=== PATIENT | female | born 1970 | race African-American/Black ===

== ENCOUNTER 2022-07-09 12:58 | Emergency (ER) | payer OTHER, SELFPAY ==
--- NOTE | ~2022-07-09 | CT_ITS ---
EXAMINATION: CT abdomen pelvis w con DATE: 07/09/2022 17:25 INDICATION: abd pain, flank pain, UTI TECHNIQUE: Computed tomography (CT) of the abdomen and pelvis was performed with 100 mL Omnipaque-350 intravenous contrast. Automated exposure control and iterative reconstruction technique were employe d. The dose-length product was 1365.87 mGy-cm. COMPARISON: None. FINDINGS: Lower thorax: Mild cardiomegaly Liver: Normal. Biliary/Gallbladder: Nondependent calcification along the anterior gallbladder wall. No bile duct dil ation. Pancreas: No mass or duct dilation. Spleen: Normal. Adrenals:No mass. Kidneys: No mass, stone, or hydronephrosis. GI tract: No small or large bowel dilation. Normal appendix. Mesentery/Peritoneum: No ascites, mass, or free air. Retroperitoneum: No mass. Pelvis: Multiple uterine fibroids. Bladder wall thickening. Soft Tissues: Soft tissues and body wall unremarkable. Bones: No acute osseous finding. IMPRESSION: Bladder wall thickening, may be secondary to partial distention versus cystitis. Multiple uterine fib roids. Reviewed, dictated and finalized at location K. 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 Multiple uterine fibroids.
[2022-07-09 13:00] VITALS: BP 131/95; PULSE 90; RESP 18; TEMP 36.9; O2SAT 100
[2022-07-09 14:08] LABS: Alanine Aminotransferase 23 U/L (6-35); Albumin Level 4.7 g/dL (3.5-5.1); Alkaline Phosphatase 100 U/L (38-126); Anion Gap 6 mmol/L (8-16); Aspartate Amino Transferase 32 U/L (14-36); Bilirubin,Total 0.5 mg/dL (0.2-1.3); Blood Urea Nitrogen 13 mg/dL (7-17); Calcium 9.2 mg/dL (8.4-10.2); Carbon Dioxide 27 mmol/L (22-30); Chloride 105 mmol/L (98-107); Estimated CRCL calculation 83 ml/min; Estimated Glomerular Filt Rate > 60; Glucose 86 mg/dL (65-110); Lipase 57 U/L (23-300); Potassium 4.7 mmol/L (3.4-5.0); Sodium 138 mmol/L (137-145)
[2022-07-09 15:07] LABS: Add Urine Microscopic? YES; Appearance Urine Cloudy (Clear); Bilirubin Urine Negative (Negative); Blood Urine Trace-Intact (Negative); Color Urine Yellow (Yellow); Glucose Urine UA Negative (Negative); Ketones Urine Negative (Negative); Leukocyte Esterase Ur 2+ LEU/UL (Negative); Nitrate Urine Negative (Negative); Protein Urine Negative (Negative); Specific Grav Ur >= 1.030 (1.001-1.035); Urobilinogen Urine 0.2 mg/dL (<2.0)
[2022-07-09 15:12] LABS: Bacteria Urine Trace /hpf; Mucus Urine Rare /lpf; Squamous Epithelial Cell Urine Many /hpf (Few); WBC Urine 16-20 /hpf
--- NOTE | 2022-07-09 16:24 | ED.ABDPAIN ---
HPI - Abdominal Pain General Chief Complaint: Abdominal Pain Stated Complaint: abd pain Time Seen by Provider: 07/09/22 16:11 Source: patient and RN notes reviewed Mode of arrival: ambulatory Limitations: no limitations History of Present Illness HPI narrative: This is a 52 year old female that presents to the ER for right lower quadrant abdominal pain ongoing over the last couple of days. Reports the pain is aching and constant. Associated with dysuria and foul smelling urine. She has not taken anything for pain. Denies fever, vomiting, or hematuria. Related Data Allergies Allergy/AdvReac Type Severity Reaction Status Date / Time No Known Allergies Allergy Mild Verified 07/09/22 13:02 Review of Systems Review of Systems: CONSTITUTIONAL: Denies fever GASTROINTESTINAL: Reports abdominal pain. Denies nausea, vomiting, or diarrhea. GENITOURINARY: Reports dysuria. Denies hematuria. All systems reviewed & are unremarkable except as noted in HPI and below PMFSH Past Medical History Medical History (Updated 07/09/22 @ 17:41 by Alma Thomas PA-C) History of gastroesophageal reflux (GERD) History of hypertension Social History Social History (Updated 07/09/22 @ 16:32 by Alma Thomas PA-C) Substance use: never Exam Narrative: GENERAL: Well-appearing, well-nourished, and in no acute distress. HEAD: Normocephalic, atraumatic. EYES: EOMI. CHEST: Clear to auscultation. No respiratory distress. No wheezes rales or rhonchi HEART: Regular rate and rhythm. No murmur heard. Normal peripheral pulses. ABDOMEN: Soft, nondistended, normal active bowel sounds. Tender to palpation in the right lower quadrant without guarding. No CVA tenderness EXTREMITIES: Normal range of motion. No edema. SKIN: Warm, dry, no rash. NEURO: No focal deficits. Alert and oriented x3. PSYCH: Normal mood and affect Course Course Emergency Course: Patient updated on work-up. Resting comfortably. Agrees with plan of care Vital Signs Vital signs: Vital Signs Temperature 98.4 F 07/09/22 13:00 Pulse Rate 90 07/09/22 13:00 Respiratory Rate 18 07/09/22 13:00 Blood Pressure 131/95 H 07/09/22 13:00 Pulse Oximetry 100 07/09/22 13:00 Oxygen Delivery Room Air 07/09/22 13:00 Temperature 98.4 F 07/09/22 13:00 Pulse Rate 90 07/09/22 13:00 Respiratory Rate 18 07/09/22 13:00 Blood Pressure 131/95 H 07/09/22 13:00 Pulse Oximetry 100 07/09/22 13:00 Oxygen Delivery Room Air 07/09/22 13:00 MDM - Abdominal Pain MDM Narrative Medical decision making narrative: Patient presents to the emergency department for right lower quadrant abdominal pain and dysuria. She is afebrile and nontoxic-appearing. Her vitals are stable. CBC is without leukocytosis. Does show microcytic anemia with hemoglobin of 10.4 which patient reports is chronic for her. Metabolic panel without concerning findings. UA with evidence of infection. This will be sent for culture. test negative. CT scan of the abdomen and pelvis shows bladder wall thickening. Multiple uterine fibroids. No other acute findings. Patient. Will be started on oral antibiotics for UTI. She is to follow-up with primary care doctor. She was given warnings to return to the ER Differential Diagnosis Differential diagnosis: Likely abdominal pain, acute appendicitis, constipation, diverticulitis and other (kidney stone, UTI) Medical Records Attestation: I reviewed the patient's medical records. Lab Data Attestation: I reviewed the patient's lab results. 07/09/22 13:40 07/09/22 13:40 Labs: Lab Results 07/09/22 07/09/22 07/09/22 Range/Units 13:40 14:43 14:43 WBC (4.5-10.0) K/mm3 RBC (4.2-5.4) M/mm3 Hgb (12.0-15.0) g/dL Hct (37.0-47.0) % MCV (80-100) fl MCH (26-34) pg MCHC (32-36) g/dl RDW (11.5-14.5) % Plt Count (150-375) k/mm3 MPV Immature Gran % (Auto) (0-0.5) %
[2022-07-09 16:30] LABS: Pregnancy On Board Control Positive; Urine Pregnancy Test Negative
[2022-07-09 17:00] LABS: Basophils Absolute Auto 0.1 K/mm3 (0.0-0.1); Basophils Percent Auto 1.1 % (0.2-1.2); Eosinophils Absolute Auto 0.1 K/mm3 (0-0.3); Eosinophils Percent Auto 1.1 % (0-4.4); Hematocrit 32.9 % (37.0-47.0); Hemoglobin 10.4 g/dL (12.0-15.0); Immature Granulocyte Absolute 0.01 K/mm3 (0.00-0.031); Immature Granulocyte Percent A 0.1 % (0-0.5); Immature Platelet Fraction Pct 11.2 % (0.9-11.2); Lymphocytes Percent Auto 37.8 % (18.3-44.2); Mean Corpuscular HGB Conc 31.6 g/dl (32-36); Mean Corpuscular Hemoglobin 20.8 pg (26-34); Mean Corpuscular Volume 65.7 fl (80-100); Monocytes Absolute Auto 0.5 K/mm3 (0.1-0.6); Monocytes Percent Auto 6.9 % (2.6-8.5); Neutrophils Absolute Auto 3.8 K/mm3 (1.3-6.7); Platelet Count Result 262 k/mm3 (150-375); Red Blood Count 5.01 M/mm3 (4.2-5.4); Red Cell Distribution Width 17.4 % (11.5-14.5); White Blood Count 7.2 K/mm3 (4.5-10.0)
[2022-07-09 17:37] LABS: Microcytosis 1+ (NORMAL); Platelet Estimate Adequate (Adequate); Target Cells 3+ (NORMAL)
[2022-07-09 17:38] LABS: Schistocytes None Seen (NORMAL); Stomatocytes 1+ (NORMAL)
== END 2022-07-09 18:10 | disposition home or self-care (01) ==
PROVIDERS: Emergency Medicine; Emergency Provider Physician Assistant
DX: N30.00 Acute cystitis without hematuria (principal); I10 Essential (primary) hypertension; K21.9 Gastro-esophageal reflux disease without esophagitis; D25.9 Leiomyoma of uterus, unspecified
CPT/HCPCS: 36415; 74177; 80053; 81001; 81025; 83690; 85025; 85055; 87086; 87088; 96374; 99284; J0131; Q9967

== ENCOUNTER 2022-11-04 20:07 | Emergency (ER) | payer OTHER, SELFPAY ==
[2022-11-04] VITALS (10 sets, daily range): BP systolic 121–159; BP diastolic 55–87; PULSE 76–91; RESP 13–18; TEMP 36.3–36.4; O2SAT 94–100
--- NOTE | ~2022-11-04 | CT_ITS ---
Clinical Indication: Hypoxia CT Scan of the Chest with Contrast: Technique: Contiguous sections were acquired throughout the chest after intravenous administration of 75 cc of Omnipaque 350. Dose reduction technique was used on this scan by utilizing automated exposu re control and iterative reconstruction technique. The dose-length product (DLP) was 464.34 mGy-cm. Findings: There is no evidence of any significant mediastinal, hilar or axillary lymphadenopathy. There is no f illing defect in the pulmonary arterial tree to suggest pulmonary embolus. There is no evidence of ao rtic dissection or aneurysm. There is no evidence of pleural or pericardial effusion. The lungs are clear. No pulmonary nodules or infiltrates are noted. Images through the upper abdomen reveal no abnormalities. There is fatty sclerosis and some groundglass opacity involving the T11 vertebral body, suggestive of fibrous dysplasia versus less likely Paget's disease or intraosseous hemangioma. Impression: Clear lungs. 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 Reviewed, dictated and finalized at location . Impression: Clear lungs. 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
--- NOTE | ~2022-11-04 | XR_ITS ---
EXAMINATION: XR chest 1V portable Exam Date/Time: 11/04/2022 22:00 CDT HISTORY: cough Comparison: None available. RESULT: Lines, tubes, and devices: None. Lungs and pleura: Slightly low volumes with crowding. Bibasilar atelectasis. Cardiomediastinal silhouette: Unremarkable. Other: No acute osseous or upper abdominal finding. IMPRESSION: No acute cardiopulmonary process. Reviewed, dictated and finalized at location K.
[2022-11-04] MEDS: SODIUM CHLORIDE 0.9% IV 1,000 ML 999 ML IV CONT (22:18)
[2022-11-04 22:31] LABS: Hematocrit 36.7 % (37.0-47.0); Hemoglobin 11.4 g/dL (12.0-15.0); Immature Platelet Fraction Pct 16.3 % (0.9-11.2); Mean Corpuscular HGB Conc 31.1 g/dl (32-36); Mean Corpuscular Hemoglobin 20.5 pg (26-34); Mean Corpuscular Volume 66.1 fl (80-100); Platelet Count Result 213 k/mm3 (150-375); Red Blood Count 5.55 M/mm3 (4.2-5.4); White Blood Count 8.5 K/mm3 (4.5-10.0)
[2022-11-04 22:39] LABS: Alanine Aminotransferase 24 U/L (6-35); Albumin Level 4.6 g/dL (3.5-5.1); Alkaline Phosphatase 108 U/L (38-126); Anion Gap 6 mmol/L (8-16); Aspartate Amino Transferase 29 U/L (14-36); Bilirubin,Total 0.8 mg/dL (0.2-1.3); Blood Urea Nitrogen 13 mg/dL (7-17); Calcium 9.3 mg/dL (8.4-10.2); Carbon Dioxide 28 mmol/L (22-30); Chloride 104 mmol/L (98-107); Estimated CRCL calculation 85 ml/min; Estimated Glomerular Filt Rate > 60; Glucose 97 mg/dL (65-110); Sodium 138 mmol/L (137-145)
--- NOTE | 2022-11-04 22:40 | ECG_ITS ---
Measurements Intervals [place] Rate: 82 P: 46 FL: 168 QRS: 47 QRSD: 81 T: 24 QT: 393 QTc: 459 Interpretive Statements SINUS RHYTHM DELAYED PRECORDIAL R/S TRANSITION BORDERLINE T WAVE ABNORMALITY- ANTERIOR LEADS BORDERLINE ECG NO PREVIOUS ECG AVAILABLE FOR COMPARISON Electronically Signed On 11-05-2022 6:17:25 CDT by Ephraim Aldrich D.O.
[2022-11-04 23:01] LABS: Band Neutrophils Percent 1 % (0-6); Eosinophils Absolute Manual 0.08 K/mm3 (0.02-0.5); Eosinophils Percent Manual 1 % (0-4); Lymphocytes Absolute Manual 2.63 K/mm3 (1.1-4.5); Metamyelocytes Percent 1 %; Monocytes Absolute Manual 0.59 K/mm3 (0.1-0.90); Monocytes Percent Manual 7 % (3-9); Neutrophils Percent Manual 59 % (46-73); Platelet Estimate Adequate (Adequate); Total Cells Counted 100
[2022-11-04 23:02] LABS: Anisocytosis 2+ (NORMAL); Large Platelets Present; Macrocytosis 1+ (NORMAL); Microcytosis 2+ (NORMAL); Schistocytes None Seen (NORMAL)
[2022-11-04 23:03] LABS: Atypical Lymphocytes Present; Target Cells 1+ (NORMAL)
[2022-11-04 23:04] LABS: Hypochromasia 1+ (NORMAL)
[2022-11-04 23:09] LABS: Troponin I < 0.012 ng/mL (0.000-0.034)
[2022-11-04 23:32] LABS: D Dimer 0.42 ug/mL (<0.48)
--- NOTE | 2022-11-04 23:43 | ED.DIZZY ---
HPI - Dizziness General Chief Complaint: Dizziness <MIMI Funes Last Filed: 11/05/22 03:28> Stated Complaint: dizzy, tired <MIMI Funes Last Filed: 11/05/22 03:28> Time Seen by Provider: 11/04/22 21:22 <MIMI Funes Last Filed: 11/05/22 03:28> Source: patient <MIMI Funes Last Filed: 11/05/22 03:28> Mode of arrival: ambulatory <MIMI Funes Last Filed: 11/05/22 03:28> Limitations: no limitations <MIMI Funes Last Filed: 11/05/22 03:28> History of Present Illness HPI Narrative: This is a 52-year-old female with PMH of HTN who presents the ED via EMS for multiple complaints. States her chief complaint is feeling lightheaded today. Specifically notices that she is lightheaded when she stands up from a seated position. Denies LOC. States I do not drink enough water. Patient also reports malaise and cough. Also endorses chest pain and shortness of breath have been going on for several months. States that none of the symptoms are worse today. Denies abdominal pain, nausea, vomiting, vision changes, speech changes, numbness, weakness. Denies palpitations. <MIMI Funes Last Filed: 11/05/22 03:28> Related Data Allergies/Adverse Reactions: Allergies Allergy/AdvReac Type Severity Reaction Status Date / Time No Known Allergies Allergy Mild Verified 07/09/22 13:02 <MIMI Funes Last Filed: 11/05/22 03:28> Review of Systems Review of Systems: CONSTITUTIONAL: endorses malaise. Denies fever, chills, or sweats. EYES: Denies visual changes, redness, or discharge. ENT: Denies rhinorrhea, congestion, sore throat, or otalgia. CARDIOVASCULAR: See HPI RESPIRATORY: See HPI GASTROINTESTINAL: Denies abdominal pain, nausea, vomiting, or diarrhea. GENITOURINARY: Denies dysuria or hematuria. SKIN: Denies rash or itching. MUSCULOSKELETAL: Denies back pain, joint pain, or myalgia. NEUROLOGIC: See HPI PSYCHIATRIC: Denies anxiety or depression. <Jordin Spencer PA-C - Last Filed: 11/05/22 03:28> [facility] Past Medical History Medical History: Medical History (Updated 11/06/22 @ 00:00 by Sumi Flores) History of gastroesophageal reflux (GERD) History of hypertension <Jordin Spencer PA-C - Last Filed: 11/05/22 03:28> Social History Social History: Social History (Updated 07/09/22 @ 16:32 by Alma Thomas PA-C) Substance use: never <Jordin Spencer PA-C - Last Filed: 11/05/22 03:28> Exam Narrative: GENERAL: Well-appearing, well-nourished, and in no acute distress. HEAD: Normocephalic, atraumatic. EYES: PERRLA and EOMI. ENT: Nares clear, no rhinorrhea or epistaxis. Mucous membranes somewhat dry. Oropharynx without tonsillar hypertrophy exudate or other lesions. NECK: Supple. No adenopathy or masses. CHEST: No respiratory distress. Clear to auscultation. No wheezes rales or rhonchi HEART: Regular rate and rhythm. No murmur heard. Normal peripheral pulses. ABDOMEN: Soft, nontender, nondistended, normal active bowel sounds. EXTREMITIES: Normal range of motion. No edema. SKIN: Warm, dry, no rash. NEURO: Alert and oriented x3. No focal deficits. PSYCH: Normal mood and affect. 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 I performed all aspects of the MDM as documented w/ the following additions: 52-year-old presenting with lightheadedness. Initial workup was negative in the patient improved with some fluids. However on an ambulatory pulse ox test she did have a minor desaturation although she was otherwise asymptomatic. Further workup was ordered and she was given another L of fluids. CT PE was negative and there is no cause for her hypoxia. She does have an appointment with a souvenir and novelty maker as she has been having lung issues for some time. On discharge patient was resting comf
[2022-11-05 01:18] VITALS: BP 147/61; PULSE 71; RESP 17; O2SAT 99
--- NOTE | 2022-11-05 01:19 | PC.NURSE ---
Patient did road test around nurses station. SPO2 dropped to 89% for one second otherwise SPO2 was 92-94. Notified Jordin BAIRD.
[2022-11-05] MEDS: SODIUM CHLORIDE 0.9% IV 1,000 ML 999 ML IV CONT (02:04)
[2022-11-05 03:36] VITALS: BP 141/79; PULSE 77; RESP 18; TEMP 37.2; O2SAT 99
== END 2022-11-05 03:36 | disposition home or self-care (01) ==
PROVIDERS: Emergency Provider Physician Assistant; PCP Physician Assistant
DX: I95.1 Orthostatic hypotension (principal); E86.0 Dehydration; I10 Essential (primary) hypertension; K21.9 Gastro-esophageal reflux disease without esophagitis; R94.31 Abnormal electrocardiogram [ECG] [EKG]; R93.7 Abnormal findings on diagnostic imaging of other parts of musculoskeletal system
CPT/HCPCS: 36415; 71045; 71260; 80053; 84484; 85025; 85055; 85380; 93005; 96360; 96361; 99284; J7030; Q9967

== ENCOUNTER 2023-01-04 16:00 | Emergency (ER) | payer OTHER, SELFPAY ==
--- NOTE | ~2023-01-04 | CT_ITS ---
EXAMINATION: CT abdomen pelvis w con DATE: 01/04/2023 19:05 INDICATION: Abdominal and left flank pain. Dysuria. TECHNIQUE: Computed tomography (CT) of the abdomen and pelvis was performed with 100 mL Omnipaque-350 intravenous contrast. Automated exposure control and iterative reconstruction technique were employe d. The dose-length product was 1432.24 mGy-cm. COMPARISON: 07/09/2022 FINDINGS: Minimal bibasilar atelectasis. Heart size is normal. No pericardial or pleural effusion. Unchanged fo sherman mural calcification along the nondependent wall of the gallbladder. There is a second more subtle density along the posterior dependent gallbladder wall which could represent an additional mural sehrman cification or small gallstone. No intra or extra hepatic biliary ductal dilation. Multiple splenic ca lcific lesions consistent with old granulomatous disease. Pancreas, bilateral adrenal glands and kidn eys are normal. No evident urolithiasis. Multiple large uterine fibroids, the largest measuring up to 5.6 cm bowels including the appendix are normal. There is diffuse wall thickening of the decompresse d bladder which could be due to decompressed state and/or cystitis which could be either acute or chr onic. No free intraperitoneal gas or fluid. No pathologically enlarged abdominal or pelvic lymphadeno jovani. Again seen is a sclerotic coarsened internal trabecula pattern within the T11 vertebral body a nd posterior elements both which appear mildly enlarged and suggests either Paget's disease or fibrou s dysplasia. IMPRESSION: 1. Diffuse bladder wall thickening which. More prominent than expected even accounting for decompress ed state and is suspicious for cystitis. Correlate with urinalysis. No urolithiasis. 2. Small focus of mural calcific location at the gallbladder with possible cholelithiasis. 3. Fibroid uterus. Reviewed, dictated and finalized at location A. IMPRESSION: 1. Diffuse bladder wall thickening which. More prominent than expected even acc ounting for decompressed state and is suspicious for cystitis. Correlate with u rinalysis. No urolithiasis. 2. Small focus of mural calcific location at the gallbladder with possible chol elithiasis. 3. Fibroid uterus.
[2023-01-04 16:27] VITALS: BP 126/69; PULSE 65; RESP 17; TEMP 36.6; O2SAT 100
[2023-01-04 16:45] LABS: Basophils Absolute Auto 0.1 K/mm3 (0.0-0.1); Basophils Percent Auto 0.5 % (0.2-1.2); Eosinophils Absolute Auto 0.1 K/mm3 (0-0.3); Eosinophils Percent Auto 0.5 % (0-4.4); Hematocrit 35.2 % (37.0-47.0); Immature Granulocyte Absolute 0.02 K/mm3 (0.00-0.031); Immature Granulocyte Percent A 0.2 % (0-0.5); Immature Platelet Fraction Pct 10.8 % (0.9-11.2); Lymphocytes Absolute Auto 1.95 K/mm3 (0.9-3.2); Mean Corpuscular HGB Conc 31.3 g/dl (32-36); Mean Corpuscular Hemoglobin 22.1 pg (26-34); Mean Corpuscular Volume 70.7 fl (80-100); Mean Platelet Volume 11.2 fl (7.4-10.4); Monocytes Absolute Auto 0.8 K/mm3 (0.1-0.6); Monocytes Percent Auto 8.1 % (2.6-8.5); Neutrophils Absolute Auto 6.5 K/mm3 (1.3-6.7); Neutrophils Percent Auto 69.7 % (45.5-73.1); Platelet Count Result 249 k/mm3 (150-375); Red Blood Count 4.98 M/mm3 (4.2-5.4); Red Cell Distribution Width 19.3 % (11.5-14.5); White Blood Count 9.3 K/mm3 (4.5-10.0)
[2023-01-04 16:55] LABS: Alanine Aminotransferase 32 U/L (6-35); Albumin Level 4.3 g/dL (3.5-5.1); Alkaline Phosphatase 101 U/L (38-126); Anion Gap 6 mmol/L (8-16); Aspartate Amino Transferase 35 U/L (14-36); Bilirubin,Total 0.5 mg/dL (0.2-1.3); Blood Urea Nitrogen 16 mg/dL (7-17); Calcium 9.4 mg/dL (8.4-10.2); Carbon Dioxide 32 mmol/L (22-30); Chloride 102 mmol/L (98-107); Estimated Glomerular Filt Rate > 60; Glucose 84 mg/dL (65-110); Lipase 70 U/L (23-300); Potassium 3.1 mmol/L (3.4-5.0); Sodium 140 mmol/L (137-145)
[2023-01-04 17:04] LABS: Appearance Urine Clear (Clear); Bacteria Urine None Seen /hpf; Bilirubin Urine Negative (Negative); Blood Urine Negative (Negative); Color Urine Yellow (Yellow); Glucose Urine UA Negative (Negative); Ketones Urine Negative (Negative); Leukocyte Esterase Ur Trace LEU/UL (Negative); Nitrate Urine Negative (Negative); Non Pathogenic Casts 0-2; Protein Urine Negative (Negative); RBC Urine 0-2 /hpf (0-2); Specific Grav Ur 1.012 (1.001-1.035); Squamous Epithelial Cell Urine Occasional /hpf (Few); WBC Urine 0-5 /hpf; pH Urine 5.5 (5.0-9.0)
[2023-01-04 17:11] LABS: Add Urine Microscopic? YES
[2023-01-04 17:24] LABS: Platelet Estimate Adequate (Adequate); Schistocytes None Seen (NORMAL)
[2023-01-04 17:25] LABS: Anisocytosis 3+ (NORMAL); Hypochromasia 1+ (NORMAL); Microcytosis 2+ (NORMAL)
--- NOTE | 2023-01-04 18:16 | ED.ABDPAIN ---
HPI - Abdominal Pain General Chief Complaint: Abdominal Pain Stated Complaint: abd pain Time Seen by Provider: 01/04/23 16:59 History of Present Illness HPI narrative: Patient is a 52-year-old female presenting with left flank and abdominal pain. Patient states that for the last several days she has been having shooting left flank pain that goes into the center of her stomach. States that she was at [facility] and they did nothing for her other than treat her for STDs. Reports some dysuria. No nausea or vomiting, fevers, chest pain, shortness of breath, cough, numbness or weakness. Related Data Allergies Allergy/AdvReac Type Severity Reaction Status Date / Time No Known Allergies Allergy Mild Verified 07/09/22 13:02 Review of Systems Review of Systems: All systems reviewed & are unremarkable except as noted in HPI and below PMFSH Past Medical History Medical History History of gastroesophageal reflux (GERD) History of hypertension Social History Social History Substance use: never Exam Narrative: GENERAL: Well-appearing, well-nourished, and in no acute distress. HEAD: Normocephalic, atraumatic. EYES: PERRLA and EOMI. ENT: Nares clear, no rhinorrhea or epistaxis. Mucous membranes moist. NECK: Supple. CHEST: No respiratory distress. HEART: Regular rate and rhythm. ABDOMEN: + Left CVA tenderness, left lower quadrant tenderness, no guarding or rebound EXTREMITIES: Normal range of motion. No edema. SKIN: Warm, dry, no rash. NEURO: No focal deficits. Alert and oriented x3. PSYCH: Normal mood and affect. Course Vital Signs Vital signs: Vital Signs Temperature 97.9 F 01/04/23 16:27 Pulse Rate 65 01/04/23 16:27 Respiratory Rate 17 01/04/23 16:27 Blood Pressure 126/69 01/04/23 16:27 Pulse Oximetry 100 01/04/23 16:27 Temperature 98.3 F 01/04/23 19:00 Pulse Rate 70 01/04/23 21:19 Respiratory Rate 18 01/04/23 21:19 Blood Pressure 133/80 01/04/23 21:19 Pulse Oximetry 100 01/04/23 21:19 MDM - Abdominal Pain MDM Narrative Medical decision making narrative: Patient is a 52-year-old female presenting with left-sided flank and abdominal pain. Vitals are stable. Patient is well-appearing and in no acute distress. Exam is remarkable for the above. Blood work with mild hypokalemia. Plan for CT abdomen pelvis. We will start fluids, Toradol, Zofran. CT scan reveals thickening of the bladder wall. Her UA does not appear infected. The bladder wall thickening has actually been seen on prior scans. Advised her to follow-up with urology regarding this. There are also numerous large fibroids within her uterus. Suspect this may be playing a role as well. She states that she has an appointment with her pneumatic jacketer coming up to discuss these fibroids. Encouraged her to keep this appointment. Her potassium slightly low, this will be repleted orally. Advised that she also follow-up with her PCP. Appropriate return precautions given. Patient voiced understanding and is agreeable with plan. Discharged in stable condition. Differential Diagnosis Differential diagnosis: Likely abdominal pain, constipation, diverticulitis, pancreatitis and small bowel obstruction Medical Records Attestation: I reviewed the patient's medical records. Lab Data Attestation: I reviewed the patient's lab results. 01/04/23 16:38 01/04/23 16:38 Labs: Lab Results 01/04/23 01/04/23 Range/Units 16:38 16:49 WBC 9.3 (4.5-10.0) K/mm3 RBC 4.98 (4.2-5.4) M/mm3 Hgb 11.0 L (12.0-15.0) g/dL Hct 35.2 L (37.0-47.0) % MCV 70.7 L (80-100) fl MCH 22.1 L (26-34) pg MCHC 31.3 L (32-36) g/dl RDW 19.3 H (11.5-14.5) % Plt Count 249 (150-375) k/mm3 MPV 11.2 H (7.4-10.4) fl Immature Gran % (Auto) 0.2 (0-0.5) % Neut % (Auto) 69.7
[2023-01-04 18:22] VITALS: BP 142/88; PULSE 68; RESP 16; TEMP 36.3; O2SAT 98
[2023-01-04] MEDS: ONDANSETRON INJ 4 MG/2 ML VIAL IV PUSH (18:25)
[2023-01-04] MEDS: SODIUM CHLORIDE 0.9% IV 1,000 ML 999 ML IV CONT (18:25)
[2023-01-04] MEDS: KETOROLAC 30 MG/ML VIAL (*BKC) (18:25)
[2023-01-04 19:00] VITALS: BP 134/72; PULSE 73; RESP 16; TEMP 36.8; O2SAT 98
[2023-01-04] MEDS: traMADol HCL (*CRX) 50 MG TABLET PO (20:55)
[2023-01-04] MEDS: POTASSIUM CHLORIDE 20 MEQ ER TABLET 40 MEQ PO (20:56)
[2023-01-04 21:19] VITALS: BP 133/80; PULSE 70; RESP 18; O2SAT 100
== END 2023-01-04 21:19 | disposition home or self-care (01) ==
PROVIDERS: Emergency Provider Emergency Medicine; PCP Physician Assistant
DX: D25.9 Leiomyoma of uterus, unspecified (principal); E87.6 Hypokalemia; K21.9 Gastro-esophageal reflux disease without esophagitis; I10 Essential (primary) hypertension
CPT/HCPCS: 36415; 74177; 80053; 81001; 81025; 83690; 85025; 85055; 96361; 96374; 96375; 99284; A9270; J1885; J2405; J7030; Q9967

== ENCOUNTER 2023-07-20 15:53 | Emergency (ER) | payer OTHER, SELFPAY ==
--- NOTE | ~2023-07-20 | XR_ITS ---
XR chest 2V DATE: 07/20/2023 16:20 INDICATION: Midsternal chest pain since last night TECHNIQUE: PA and lateral views COMPARISON: 11/05/2022 CT chest 11/04/2022 portable AP chest FINDINGS: The cardiac and mediastinal sweats appear stable since 11/04/2022. No pulmonary infiltrate or consolidation, pleural effusion or pulmonary vascular congestion or pneumothorax is detected. IMPRESSION: No active cardiopulmonary disease Reviewed, dictated and finalized at location B. 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
[2023-07-20 15:56] VITALS: BP 140/73; PULSE 75; RESP 18; TEMP 37.1; O2SAT 100
--- NOTE | 2023-07-20 15:56 | ECG_ITS ---
Measurements Intervals [place] Rate: 73 P: 29 MO: 151 QRS: 39 QRSD: 81 T: 17 QT: 379 QTc: 420 Interpretive Statements SINUS RHYTHM BASELINE ARTIFACT- I, II, III, AVL, AVF NORMAL ECG COMPARED TO ECG 11/04/2022 23:35:30 NO SIGNIFICANT CHANGES Electronically Signed On 07-20-2023 16:46:18 SECURITY INTERN by Ephraim Aldrich D.O.
[2023-07-20 16:12] LABS: Basophils Percent Auto 0.7 % (0.2-1.2); Eosinophils Absolute Auto 0.1 K/mm3 (0-0.3); Eosinophils Percent Auto 1.1 % (0-4.4); Immature Granulocyte Absolute 0.01 K/mm3 (0.00-0.031); Immature Granulocyte Percent A 0.2 % (0-0.5); Immature Platelet Fraction Pct 10.3 % (0.9-11.2); Lymphocytes Absolute Auto 2.05 K/mm3 (0.9-3.2); Lymphocytes Percent Auto 37.4 % (18.3-44.2); Mean Corpuscular HGB Conc 32.4 g/dl (32-36); Mean Corpuscular Hemoglobin 23.1 pg (26-34); Mean Corpuscular Volume 71.3 fl (80-100); Mean Platelet Volume 10.9 fl (7.4-10.4); Monocytes Absolute Auto 0.4 K/mm3 (0.1-0.6); Monocytes Percent Auto 7.3 % (2.6-8.5); Neutrophils Absolute Auto 2.9 K/mm3 (1.3-6.7); Neutrophils Percent Auto 53.3 % (45.5-73.1); Platelet Count Result 221 k/mm3 (150-375); Red Blood Count 5.19 M/mm3 (4.2-5.4); Red Cell Distribution Width 17.8 % (11.5-14.5); White Blood Count 5.5 K/mm3 (4.5-10.0)
[2023-07-20 16:21] LABS: Partial Thromboplastin Time 23.4 SECONDS (22.3-36.8); Prothrombin Time 13.3 Seconds (11.1-14.7)
[2023-07-20 16:23] LABS: Alanine Aminotransferase 23 U/L (6-35); Albumin Level 3.9 g/dL (3.5-5.1); Alkaline Phosphatase 109 U/L (38-126); Anion Gap 5 mmol/L (8-16); Aspartate Amino Transferase 35 U/L (14-36); Bilirubin,Total 0.5 mg/dL (0.2-1.3); Blood Urea Nitrogen 11 mg/dL (7-17); Calcium 8.9 mg/dL (8.4-10.2); Carbon Dioxide 28 mmol/L (22-30); Chloride 105 mmol/L (98-107); Estimated CRCL calculation 78 ml/min; Estimated Glomerular Filt Rate > 60; Glucose 101 mg/dL (65-110); Lipase 57 U/L (23-300); Potassium 3.7 mmol/L (3.4-5.0); Sodium 138 mmol/L (137-145)
[2023-07-20 16:33] LABS: Troponin I < 0.012 ng/mL (0.000-0.034)
[2023-07-20 16:56] LABS: Anisocytosis 1+ (NORMAL); Hypochromasia 1+ (NORMAL); Platelet Estimate Adequate (Adequate); Schistocytes None Seen (NORMAL)
[2023-07-20 17:23] LABS: D Dimer 0.27 ug/mL (<0.48)
--- NOTE | 2023-07-20 18:48 | PC.NURSE ---
This RN was informed that pt was seen leaving the ED. This RN went to go look in pt room to discover pt gone and not in ED. manager freelance Clair made aware.
--- NOTE | 2023-07-20 19:12 | ED.CHESTPAIN ---
HPI - Chest Pain General Chief Complaint: Chest Pain Stated Complaint: chest pain Time Seen by Provider: 07/20/23 17:00 Source: patient Mode of arrival: EMS Limitations: no limitations History of Present Illness HPI narrative: Patient is a 53-year-old female, with PMH of hypertension, who presents the ED via EMS with report of CP. Patient reports he developed midsternal chest pain yesterday, and described as a sharp aching in her midsternal chest. Pain worse with taking deep breath. Patient was seen at [facility] yesterday and had a negative workup regarding the chest pain. She was also having a headache at that time and had a negative CT scan of her brain. She was restarted on blood pressure medication. Patient reports long history of HTN, but states she had not been taking her blood pressure medicines for 6 months. Does not routinely check her blood pressures at home. Chest pain has continued into today and patient wanted another evaluation. Improved with aspirin given by EMS. Denies feeling short of breath. She does report recent cough and URI symptoms and states she was diagnosed with COVID-19 a couple of weeks ago. Denies lower extremity pain or swelling, history of blood clots. Related Data Allergies Allergy/AdvReac Type Severity Reaction Status Date / Time No Known Allergies Allergy Mild Verified 07/20/23 16:08 Review of Systems Review of Systems: CONSTITUTIONAL: Denies fever, chills, or sweats. CARDIOVASCULAR: See HPI RESPIRATORY: See HPI GASTROINTESTINAL: Denies abdominal pain, nausea, vomiting. MUSCULOSKELETAL: Denies back pain, extremity pain, myalgia. All systems reviewed & are unremarkable except as noted in HPI and below PMFSH Past Medical History Medical History History of gastroesophageal reflux (GERD) History of hypertension Social History Social History Substance use: never Exam Narrative: GENERAL: Well appearing, morbidly obese with BMI of 42.5, non-toxic, in no acute distress. HEAD: Normocephalic, atraumatic. RESPIRATORY: Airway patent, respirations nonlabored. Clear to auscultation bilaterally, no rales, rhonchi, wheezing. No focal lung sounds. CARDIOVASCULAR: Regular rate and rhythm without murmurs, rubs, or gallops. MUSCULOSKELETAL: Moves all extremities. No gross deformities. Mild TTP along L sternal border/anterior chest wall, reproducing pain. No lower extremity edema. No calf tenderness. SKIN: Warm, dry, normal color. NEURO: A&O X3. Speech clear. Cranial nerves II-XII grossly intact. Steady gait. No ataxic movements. PSYCHIATRIC: Slightly agitated. Normal interaction. Course Vital Signs Vital signs: Vital Signs Temperature 98.8 F 07/20/23 15:56 Pulse Rate 75 07/20/23 15:56 Respiratory Rate 18 07/20/23 15:56 Blood Pressure 140/73 07/20/23 15:56 Pulse Oximetry 100 07/20/23 15:56 Oxygen Delivery Room Air 07/20/23 15:56 Temperature 98.8 F 07/20/23 15:56 Pulse Rate 75 07/20/23 15:56 Respiratory Rate 18 07/20/23 15:56 Blood Pressure 140/73 07/20/23 15:56 Pulse Oximetry 100 07/20/23 15:56 Oxygen Delivery Room Air 07/20/23 15:56 MDM - Chest Pain MDM Narrative Medical decision making narrative: Patient present ED with 2 day history of midsternal chest pain, pleuritic nature to pain, denies shortness breath or difficulty breathing. Evaluated at outside hospital yesterday with negative workup. Wanting re-evaluation. Vitals stable upon arrival. Patient in no acute distress. Midsternal chest wall tenderness to palpation. EKG without ischemic changes. Troponin negative. Remainder basic laboratory studies unremarkable. Chest x-ray clear. Patient updated on lab and imaging findings thus far. She reported having recent URI symptoms/COVID-19. Discussed possibility of pleurisy, costochondrit
== END 2023-07-20 18:54 | disposition left against medical advice (07) ==
PROVIDERS: Emergency Medicine; Emergency Provider Physician Assistant; PCP Physician Assistant
DX: R07.89 Other chest pain (principal); I10 Essential (primary) hypertension; K21.9 Gastro-esophageal reflux disease without esophagitis
CPT/HCPCS: 36415; 71046; 80053; 83690; 84484; 85025; 85055; 85380; 85610; 85730; 93005; 99284

== ENCOUNTER 2023-10-25 22:07 | Emergency (ER) | payer OTHER, SELFPAY ==
[2023-10-25 22:19] VITALS: BP 141/74; PULSE 92; RESP 15; TEMP 36.4; O2SAT 99
--- NOTE | 2023-10-25 23:06 | ED.GENADULT ---
[facility] - General Adult General Chief complaint: Extremity Injury, Upper Stated complaint: L arm pain Time Seen by Provider: 10/25/23 22:53 Source: patient Mode of arrival: ambulatory Limitations: no limitations History of Present Illness HPI narrative: This is a 53-year-old female who presents to the ED with chief complaint of left arm/shoulder pain for the past 2 weeks. Patient reports pain worsens with movement. Denies any chest pain or radiation of pain into the chest. Reports pain somewhat radiates into the back at times. Reports that she initially twisted her arm wrong while stretching and this may have caused her pain. Denies fevers, chills, rash, numbness, weakness, shortness of breath, cough. States she has not taken any [id number] pain medications because she does not like taking medicines. Related Data Allergies Allergy/AdvReac Type Severity Reaction Status Date / Time No Known Allergies Allergy Mild Verified 07/20/23 16:08 Review of Systems Review of Systems: All systems as dictated in [facility] Past Medical History Medical History History of gastroesophageal reflux (GERD) History of hypertension Social History Social History Substance use: never Exam Narrative: GENERAL: Well-appearing, well-nourished, and in no acute distress. HEAD: Normocephalic, atraumatic. EYES: PERRLA and EOMI. ENT: Nares clear, no rhinorrhea or epistaxis. Mucous membranes moist. Oropharynx without tonsillar hypertrophy exudate or other lesions. NECK: Supple. No adenopathy or masses. CHEST: No respiratory distress. Clear to auscultation. No wheezes rales or rhonchi HEART: Regular rate and rhythm. No murmur heard. Normal peripheral pulses. ABDOMEN: Soft, nontender, nondistended, normal active bowel sounds. MSK: Right upper extremity: Benign Left upper extremity: Pain with passive range of motion of the left shoulder. Pain with empty can test. Minimal tenderness throughout the shoulder joint. Neurovascularly intact distally SKIN: Warm, dry, no rash. NEURO: Alert and oriented x3. No focal deficits. PSYCH: Normal mood and affect. Course Vital Signs Vital signs: Vital Signs Temperature 97.6 F 10/25/23 22:19 Pulse Rate 92 10/25/23 22:19 Respiratory Rate 15 10/25/23 22:19 Blood Pressure 141/74 H 10/25/23 22:19 Pulse Oximetry 99 10/25/23 22:19 Temperature 97.6 F 10/25/23 22:19 Pulse Rate 88 10/25/23 23:34 Respiratory Rate 14 10/25/23 23:34 Blood Pressure 139/78 10/25/23 23:34 Pulse Oximetry 99 10/25/23 23:34 Medical Decision Making MDM Narrative Medical decision making narrative: This is a 53-year-old female who presents to the ED with chief complaint of left shoulder pain beginning after injury that occurred 2 weeks ago. Vitals are normal. Exam shows pain with range of motion of left shoulder. Benign exam otherwise. Symptoms are consistent with musculoskeletal strain. Tylenol prescription given. Pt will be discharged in stable condition. Return precautions given and supportive measures discussed. Pt is understanding and agreeable with plan for discharge and follow-up with PCP. Vital Signs Vital Signs: Vital Signs Temperature 97.6 F 10/25/23 22:19 Pulse Rate 92 10/25/23 22:19 Respiratory Rate 15 10/25/23 22:19 Blood Pressure 141/74 H 10/25/23 22:19 Pulse Oximetry 99 10/25/23 22:19 Temperature 97.6 F 10/25/23 22:19 Pulse Rate 88 10/25/23 23:34 Respiratory Rate 14 10/25/23 23:34 Blood Pressure 139/78 10/25/23 23:34 Pulse Oximetry 99 10/25/23 23:34 Discharge Plan Discharge Clinical Impression: Left shoulder strain Patient Disposition: Home, Self-Care Condition: Stable Instructions: Antibiotic Form Additional Instructions: Your exam today is reassuring. Follow-up with your re
[2023-10-25 23:34] VITALS: BP 139/78; PULSE 88; RESP 14; O2SAT 99
== END 2023-10-25 23:35 | disposition home or self-care (01) ==
PROVIDERS: Emergency Provider Physician Assistant
DX: S46.912A Strain of unspecified muscle, fascia and tendon at shoulder and upper arm level, left arm, initial encounter (principal); I10 Essential (primary) hypertension; K21.9 Gastro-esophageal reflux disease without esophagitis; X50.9XXA Other and unspecified overexertion or strenuous movements or postures, initial encounter
CPT/HCPCS: 99283

== ENCOUNTER 2023-12-09 17:43 | Emergency (ER) | payer OTHER, SELFPAY ==
--- NOTE | ~2023-12-09 | XR_ITS ---
XR chest 2V Ordering provider: Myrtle Delvalle MD History: 53 years Female with . shortness of breath . Comparison: July 20, 2023 FINDINGS: MEDIASTINUM: The cardiac silhouette is not enlarged. LUNGS: No infiltrates, effusions or pneumothorax. Prominent markings in the lower lobes. OTHER: No free air under the diaphragm. IMPRESSION: No acute cardiopulmonary pathology. Reviewed, dictated and finalized at location A.
--- NOTE | 2023-12-09 17:47 | ECG_ITS ---
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 Measurements Intervals [place] Rate: 90 P: 28 W[place]: 142 QRS: 34 QRSD: 81 T: 11 QT: 360 QTc: 442 Interpretive Statements SINUS RHYTHM No previous ECG available for comparison Electronically Signed On 12-10-2023 13:35:38 CDT by Darcy Spangler M.D.
[2023-12-09 17:51] VITALS: BP 158/76; PULSE 92; RESP 20; TEMP 36.4; O2SAT 98
--- NOTE | 2023-12-09 18:16 | ED.SOB ---
HPI - SOB/Dyspnea General Chief Complaint: Shortness of Breath/Dyspnea Stated Complaint: shortness of breath Time Seen by Provider: 12/09/23 18:09 Source: patient Mode of arrival: ambulatory Limitations: no limitations History of Present Illness HPI Narrative: Patient presents with acute onset medial chest pain 5 out of 10 in severity and shortness of breath. She had brought her daughter to the ED for a different complaint but while in the ED experienced these symptoms. No fever. Has had a cough productive of some mucous, no hemoptysis. Former smoker (quit 2 years ago). Pain was at her medial chest. 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 Patient reports subjective lower extremity edema. She is also concerned for a UTI since she has had foul smelling urine. No hematuria or dysuria but has morena experiencing urgency and frequency. She notes she had been diagnosed with COPD and saw a outreach clinician once (Dr Pathak in [facility]) but has run out of her albuterol inhaler. No prior history DVT or PE. Not on hormones. Patient does note significant stressors as her 29-year-old daughter is and her other daughter has schizophrenia (also presenting as a patient in the ED on this date). She also helps provide care for her 13yo grandchild who has sickle cell. Related Data Allergies Allergy/AdvReac Type Severity Reaction Status Date / Time No Known Allergies Allergy Mild Verified 12/09/23 17:55 [facility] Past Medical History Medical History (Updated 12/11/23 @ 10:13 by Myrtle Delvalle MD) COPD (chronic obstructive pulmonary disease) History of gastroesophageal reflux (GERD) History of hypertension Sickle cell trait Family History Family History (Updated 12/10/23 @ 11:49 by Myrtle Delvalle MD) Daughter Schizophrenia Other Sickle cell anemia Daughter , at age 29 No problems noted. Mother Acute myocardial infarction <65yo Social History Social History (Updated 12/11/23 @ 10:09 by Myrtle Delvalle MD) Smoking status: Former smoker Substance use: never Exam Narrative: GENERAL: Well-appearing, well-nourished, and in no acute distress. HEAD: Normocephalic, atraumatic. EYES: Non injected, non icteric ENT: Nares clear, no rhinorrhea or epistaxis. NECK: Supple. CHEST: Speaking in full sentences. No respiratory distress. Lungs clear to auscultation without wheezes/crackles. HEART: Regular rate and rhythm. . ABDOMEN: Soft, nondistended. EXTREMITIES: Normal range of motion. No bilateral lower extremity pitting or nonpitting edema. SKIN: Warm, dry, no rash. NEURO: No focal deficits. Alert and oriented x3. PSYCH: Normal mood and affect. Course Vital Signs Vital signs: Vital Signs Temperature 97.6 F 12/09/23 17:51 Pulse Rate 92 12/09/23 17:51 Respiratory Rate 20 12/09/23 17:51 Blood Pressure 158/76 H 12/09/23 17:51 Pulse Oximetry 98 12/09/23 17:51 Oxygen Delivery Room Air 12/09/23 17:51 Temperature 97.6 F 12/09/23 17:51 Pulse Rate 74 12/09/23 22:12 Respiratory Rate 17 12/09/23 22:12 Blood Pressure 127/52 L 12/09/23 22:12 Pulse Oximetry 100 12/09/23 22:12 Oxygen Delivery Room Air 12/09/23 18:17 MDM - SOB/Dyspnea MDM Narrative Medical decision making narrative: Patient presents with acute onset chest pain and shortness of breath she experienced while in the ED bringing her daughter for evaluation for a different concern In the emergency department she is afebrile with vital signs notable for hypertension. Given acuity of symptoms, will plan to obtain 2 troponins. HEART SCORE History 2 highly suspicious 1 moderately suspicious 0 slightly suspicious History score [address] depression/elevation not due to LBBB, LVH, or digoxin [address] depression but LBBB, LVH, nonspecific repolarization changes 0 normal ECG score 0 Age 2 >/= 65 1 45-64 0 <45 Age score 1 Risk factors (HTN, hypercholesterolemia
[2023-12-09 18:20] LABS: Alanine Aminotransferase 23 U/L (6-35); Albumin Level 4.3 g/dL (3.5-5.1); Alkaline Phosphatase 112 U/L (38-126); Anion Gap 7 mmol/L (4-12); Aspartate Amino Transferase 33 U/L (14-36); Bilirubin,Total 0.6 mg/dL (0.2-1.3); Blood Urea Nitrogen 17 mg/dL (7-17); Calcium 8.9 mg/dL (8.4-10.2); Carbon Dioxide 24 mmol/L (22-30); Chloride 109 mmol/L (98-107); Estimated CRCL calculation 79 ml/min; Estimated Glomerular Filt Rate > 60; Glucose 91 mg/dL (65-110); Sodium 140 mmol/L (137-145)
[2023-12-09 18:31] LABS: Troponin I < 0.012 ng/mL (0.000-0.034)
[2023-12-09 18:47] LABS: Basophils Absolute Auto 0.1 K/mm3 (0.0-0.1); Basophils Percent Auto 0.7 % (0.2-1.2); Eosinophils Percent Auto 0.5 % (0-4.4); Hemoglobin 12.5 g/dL (12.0-15.0); Immature Granulocyte Absolute 0.02 K/mm3 (0.00-0.031); Immature Granulocyte Percent A 0.3 % (0-0.5); Immature Platelet Fraction Pct 16.2 % (0.9-11.2); Lymphocytes Absolute Auto 2.76 K/mm3 (0.9-3.2); Lymphocytes Percent Auto 36.5 % (18.3-44.2); Mean Corpuscular HGB Conc 32.9 g/dl (32-36); Mean Corpuscular Volume 73.1 fl (80-100); Mean Platelet Volume 11.9 fl (7.4-10.4); Monocytes Absolute Auto 0.7 K/mm3 (0.1-0.6); Monocytes Percent Auto 8.6 % (2.6-8.5); Neutrophils Percent Auto 53.4 % (45.5-73.1); Platelet Count Result 171 k/mm3 (150-375); Red Cell Distribution Width 16.8 % (11.5-14.5); White Blood Count 7.6 K/mm3 (4.5-10.0)
[2023-12-09 19:00] LABS: Platelet Estimate Adequate (Adequate)
[2023-12-09 19:01] LABS: Anisocytosis 1+; Large Platelets Present; Schistocytes None Seen; Stomatocytes 1+
[2023-12-09 19:02] LABS: D Dimer 0.34 ug/mL (<0.48)
[2023-12-09 19:07] LABS: Appearance Urine Cloudy (Clear); Bacteria Urine 1+ /hpf; Bilirubin Urine Negative (Negative); Blood Urine Negative (Negative); Color Urine Yellow (Yellow); Glucose Urine UA Negative (Negative); Ketones Urine Negative (Negative); Leukocyte Esterase Ur Trace LEU/UL (Negative); Nitrate Urine Negative (Negative); Non Pathogenic Casts 0-2; Protein Urine Trace mg/dL (Negative); Specific Grav Ur 1.028 (1.001-1.035); Squamous Epithelial Cell Urine Many /hpf (Few); WBC Urine 21-50 /hpf (0-3); pH Urine 5.5 (5.0-9.0)
[2023-12-09 19:09] LABS: Add Urine Microscopic? YES
[2023-12-09 19:16] LABS: Influenza A QL RT-PCR Negative (Negative); Influenza B QL RT-PCR Negative (Negative); RSV RNA, RT-PCR Negative (Negative); SARS-CoV-2 RNA PCR Negative (Negative)
[2023-12-09] MEDS: ACETAMINOPHEN 500 MG TABLET 1000 MG PO (19:46)
[2023-12-09] MEDS: ASPIRIN 81 MG CHEWABLE TABLET 324 MG PO (19:46)
[2023-12-09] MEDS: SULFAMETHOXAZOLE/TRIMETHOPRIM 800/160 MG DS TABLET 1 TAB PO (19:50)
[2023-12-09 19:57] VITALS: BP 134/84; PULSE 73; RESP 20; O2SAT 100
--- NOTE | 2023-12-09 21:34 | ECG_ITS ---
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 Measurements Intervals [place] Rate: 75 P: 41 VT: 139 QRS: 52 QRSD: 83 T: 33 QT: 408 QTc: 456 Interpretive Statements SINUS RHYTHM WITH SINUS ARRHYTHMIA Compared to ECG 12/09/2023 17:54:39 No significant changes Electronically Signed On 12-10-2023 13:37:10 CDT by Darcy Spangler M.D.
[2023-12-09 21:59] LABS: Troponin I < 0.012 ng/mL (0.000-0.034)
[2023-12-09 22:12] VITALS: BP 127/52; PULSE 74; RESP 17; O2SAT 100
== END 2023-12-09 22:25 | disposition home or self-care (01) ==
PROVIDERS: Emergency Provider Student in an Organized Health Care Education/Training Program
DX: N39.0 Urinary tract infection, site not specified (principal); R07.9 Chest pain, unspecified; R06.02 Shortness of breath; Z76.0 Encounter for issue of repeat prescription; J44.9 Chronic obstructive pulmonary disease, unspecified; K21.9 Gastro-esophageal reflux disease without esophagitis; I10 Essential (primary) hypertension; Z20.822 Contact with and (suspected) exposure to COVID-19
CPT/HCPCS: 36415; 71046; 80053; 81001; 84484; 85025; 85055; 85380; 87086; 87088; 87637; 93005; 99284; A9270